=== PATIENT | female | born 1965 | race Caucasian/White ===

== ENCOUNTER 2018-08-24 10:46 | Inpatient (IN) | payer BC ==
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
[2018-08-24 11:41] LABS: Hematocrit 53 % (35-47); Hemoglobin 17.6 g/dL (12.0-16.0); Mean Corpuscular HGB Conc 33 g/dL (31-36); Mean Corpuscular Hemoglobin 29 pg (27-31); Mean Corpuscular Volume 87 fL (80-97); Platelet Count 168 10^3/uL (150-450); Red Blood Count 6.11 10^6 /uL (3.70-4.87); Red Cell Distribution Width 14 % (10-15); White Blood Count 5.8 10^3/uL (3.5-10.8)
[2018-08-24 11:52] LABS: Urine Appearance Clear; Urine Bilirubin Negative (Negative); Urine Blood Negative (Negative); Urine Color Yellow; Urine Glucose Negative (Negative); Urine Ketones Negative (Negative); Urine Nitrite Negative (Negative); Urine Protein Negative (Negative); Urine Urobilinogen Negative (Negative)
[2018-08-24 12:00] LABS: Albumin 3.5 g/dL (3.2-5.2); Albumin/Globulin Ratio 0.9 (1-3); BUN/Creatinine Ratio 11.3 (8-20); Calcium 8.8 mg/dL (8.6-10.3); EGFR African American 146.6 (>60); EGFR Non-African American 121.1 (>60); Potassium 3.3 mmol/L (3.5-5.0); Total Bilirubin 0.9 mg/dL (0.2-1.0); Total Protein 7.5 g/dL (6.4-8.9)
[2018-08-24] MEDS ORDERED: Nitroglycerin TAB 0.4 MG* 0.4 MG TAB SL ONE (12:06)
[2018-08-24] MEDS ORDERED: Aspirin 81 mg CHEW TAB* 81 MG TAB.CHEW PO ONE (12:06)
[2018-08-24] MEDS ORDERED: Iohexol 350* (CONTRAST) 500 ML MDV IV ONE (12:14)
[2018-08-24 12:16] LABS: Troponin I 0.06 ng/mL (<0.04)
[2018-08-24] MEDS ORDERED: Potassium Chlor TAB* 20 MEQ TAB.ER PO ONE ×2 (12:55→16:49)
[2018-08-24] MEDS ORDERED: ALPRAZolam TAB* 0.5 MG PO ONE (12:55)
[2018-08-24] MEDS ORDERED: Furosemide IV* 10 MG/ML VIAL (40 MG) IV SLOW PU ONE (13:09)
[2018-08-24] MEDS ORDERED: Iodixanol* (CONTRAST) 320 MG/ML 100 ML SDV IV ONE (13:31)
[2018-08-24] MEDS ORDERED: Ondansetron INJ* 2 MG/ML VIAL IV PRN (16:01)
[2018-08-24] MEDS ORDERED: Albuterol/Ipratropium NEB.SOL* Albuterol 2.5 MG/Ipratropium 0.5 MG 3 ML INH PRN (16:01)
[2018-08-24] MEDS ORDERED: predniSONE TAB* 20 MG PO ONE (16:04)
[2018-08-24] MEDS ORDERED: Azithromycin TAB* 250 MG PO ONE (16:06)
[2018-08-24] MEDS ORDERED: Nitroglycerin 0.2 MG/HR PATCH* (5 MG) TRANSDERM ONE (16:22)
[2018-08-24] MEDS ORDERED: Nicotine PATCH 21 MG/24 HR* PATCH TRANSDERM PRN (16:24)
[2018-08-24 16:33] LABS: Troponin I 0.07 ng/mL (<0.04)
[2018-08-24] MEDS ORDERED: Enoxaparin(*) 40 MG/0.4 ML SYR SUBCUT SCH (17:00)
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
--- NOTE | 2018-08-24 20:15 | HP ---
HISTORY AND PHYSICAL: ADDENDUM: The case was reviewed and discussed with Maryjo Cardona, a physician billing and accounting staff assistant. Mrs. Romero is a 52-year-old lady with a past medical history of hypertension, tobacco abuse, who presents to the emergency room with complaints of lower extremities edema, left-sided chest pain, and shortness of breath. Her workup in the emergency room include lower extremity Doppler with no DVT and CTA of the chest with no evidence of pulmonary embolism, but findings compatible with advanced emphysema and probable pulmonary hypertension. There are also signs of interstitial edema and small volume perihepatic ascites. IMPRESSION: The patient presents with congestive heart failure and she will also need workup for coronary artery disease. At this point, we will treat her congestive heart failure and chronic obstructive pulmonary disease, and when she is more stable, we will consider a stress test, unless her troponin continues to trend up and she was in for a myocardial infarction and requires a cardiac cath. I am in agreement with the current management. [id number]/CPS #: [id number] MTDD
[2018-08-24] MEDS: Atorvastatin* 40 MG TAB PO SCH (21:16)
[2018-08-24] MEDS: Enoxaparin(*) 40 MG/0.4 ML SYR SUBCUT SCH (21:17)
[2018-08-24] MEDS ORDERED: Albuterol HFA INHALER* 8 gm MDI INH PRN (22:05)
[2018-08-24] MEDS: Nicotine Patch Removal NOTE PATCH OFF SCH (22:15)
[2018-08-24 23:52] LABS: Troponin I 0.06 ng/mL (<0.04)
[2018-08-25 02:52] LABS: Troponin I 0.05 ng/mL (<0.04)
[2018-08-25 06:02] LABS: ABS Lymphocytes 0.3 10^3/ul (1.0-4.8); ABS Monocytes 0.1 10^3/ul (0-0.8); ABS Neutrophils 1.4 10^3/ul (1.5-7.7); Hematocrit 49 % (35-47); Hemoglobin 16.6 g/dL (12.0-16.0); Lymphocyte % 18.4 %; Mean Corpuscular HGB Conc 34 g/dL (31-36); Mean Corpuscular Hemoglobin 30 pg (27-31); Mean Corpuscular Volume 87 fL (80-97); Mean Platelet Volume 9.4 fL (7.4-10.4); Nucleated Red Blood Cells % 0.7; Platelet Count 131 10^3/uL (150-450); Red Blood Count 5.63 10^6 /uL (3.70-4.87); Red Cell Distribution Width 14 % (10-15); White Blood Count 1.8 10^3/uL (3.5-10.8)
[2018-08-25] MEDS: Levothyroxine TAB* 75 MCG TAB PO SCH (06:04)
[2018-08-25 06:11] LABS: BUN/Creatinine Ratio 10.6 (8-20); Blood Urea Nitrogen 5 mg/dL (6-24); Calcium 8.7 mg/dL (8.6-10.3); Chloride 96 mmol/L (101-111); EGFR African American 168.4 (>60); EGFR Non-African American 139.2 (>60); Glucose 112 mg/dL (70-100); Sodium 138 mmol/L (135-145)
[2018-08-25 06:13] LABS: CO2 Carbon Dioxide 42 mmol/L (22-32)
[2018-08-25] MEDS ORDERED: Furosemide IV* 10 MG/ML VIAL (40 MG) IV ONE (09:00)
[2018-08-25] MEDS: Aspirin EC TAB* 81 MG TAB.EC PO SCH (09:22)
[2018-08-25] MEDS: Hydrochlorothiazide TAB* 25 MG PO SCH (09:22)
[2018-08-25] MEDS: Azithromycin TAB* 250 MG PO SCH (09:22)
[2018-08-25] MEDS: Nitroglycerin 0.2 MG/HR PATCH* (5 MG) TRANSDERM SCH (09:23)
[2018-08-25] MEDS: Nitroglycerin 0.2 MG/HR PATCH* (5 MG) TRANSDERM ONE ×2 (09:23→11:02)
[2018-08-25] MEDS: predniSONE TAB* 20 MG PO SCH (09:23)
[2018-08-25] MEDS: amLODIPine TAB* 5 MG PO SCH (09:23)
--- NOTE | 2018-08-25 10:04 | ECHO ---
*[facility]* [place] [address] Fax #: [phone] Transthoracic Echocardiogram Patient: Rosette Roemro : 1965 Study Date: 08/25/2018 Age: 52 Gender: F HR: 106 bpm Height: 62 in /157.5 cm BSA: 1.34 m^2 Weight: 91.8 lb /41.7 kg BMI: 16.8 kg/m^2 *Oxyacetylene Welder: * Akosua Vasquez RD *Referring Physician: * Maryjo Cardona *Reading Physician: * Clifford Dorsey MD Indications: SOB. Edema. History: Probable Chronic obstructive pulmonary disease by chest xray. Risk factors: Current tobacco use. Hypertension. Conclusions Summary: 1. Left ventricle: The cavity size is normal. Wall thickness is normal. Systolic function is normal. The estimated ejection fraction is 55-60%. Wall motion is normal; there are no regional wall motion abnormalities. 2. Right ventricle: The cavity size is moderately dilated. Wall thickness is mildly increased. Systolic function is moderately reduced. 3. Ventricular septum: There is septal flattening of the interventricular septum consistent with RV volume or pressure overload. 4. Tricuspid valve: There is mild-moderate regurgitation. 5. Pulmonary arteries: Systolic pressure is mildly increased. 6. There is no prior echocardiogram available to compare with at this time. Study data: Transthoracic echocardiogram. Procedure: Transthoracic echocardiography was performed. Image quality was good. Complete 2D, spectral Doppler, and color flow Doppler. Location: Bedside. Patient status: Inpatient. Patient room number: 440. Rhythm: Tachycardia. Findings Left ventricle: The cavity size is normal. Wall thickness is normal. Systolic function is normal. The estimated ejection fraction is 55-60%. Wall motion is normal; there are no regional wall motion abnormalities. There is no consistent Doppler evidence of clinically significant diastolic dysfunction. Right ventricle: The cavity size is moderately dilated. Wall thickness is mildly increased. Systolic function is moderately reduced. Systolic pressure is mildly increased. Ventricular septum: There is septal flattening of the interventricular septum consistent with RV volume or pressure overload. Left atrium: The atrium is normal in size. Right atrium: The atrium is mildly dilated. Mitral valve: The leaflets are mildly thickened. There is no evidence of stenosis. There is mild regurgitation. Aortic valve: The valve is trileaflet. The leaflets are mildly thickened. There is no evidence of stenosis. There is no significant regurgitation. Tricuspid valve: The leaflets are normal thickness. There is mild-moderate regurgitation. Pulmonic valve: The leaflets are normal thickness. There is no evidence of stenosis. There is trivial regurgitation. Aorta: Ascending aorta: The ascending aorta is appears normal. Aortic arch: The aortic arch is not visualized. The aortic root is not dilated. Pericardium: A possible, small pericardial effusion is identified at the apex. The fluid has no internal echoes. There is no evidence of hemodynamic compromise. Pulmonary arteries: Not well visualized. Systolic pressure is mildly increased. Systemic veins: Inferior vena cava: The vessel is dilated. The respirophasic diameter changes are in the normal range (>= 50%). Measurements Left ventricle Value Ref Aortic valve Value Ref LAKIA, LAX (L) 3.7 cm 3.8 - 5.2 Peak v, S 1.04 m/sec ----- ESD, LAX 2.5 cm 2.2 - 3.5 VTI, S 17.5 cm ----- FS, LAX 32 % 45 Mean grad, S 2.7 mm Hg ----- PW, ED, LAX 0.9 cm 0.6 - 0.9 Peak grad, S 4.3 mm Hg ----- FS 32 % - 45 LVOT/AV, VTI ratio 0.81 ----- PW, ED 0.9 cm 0.6 - 0.9 JOVI, VTI 1.91 cm^2 ----- E', lat jonathan, TDI (L) 5.8 cm/sec >=10.0 JOVI, Vmax 2.28 cm^2 --- -- E/e', lat jonathan, 17 TDI Mitral valve Value Ref Peak E 0.97 m/sec ----- LVOT Value Ref Peak A 1.3 m/sec ----- Diam, S 1.89 cm Decel time 37 ms ----- Area 2.8 cm^2 Peak grad, D 3.7 mm Hg ----- Peak madelin, S 0.99 m/sec Peak E/A ratio 0.75 ----- VTI, S 14.1 cm Peak grad, S 4 mm Hg Pulmonic valve Value Ref Mean grad, S 2 mm Hg Peak v, S 0.75 m/sec ----- Peak grad, S 2.2 mm Hg ----- Ventricular septum Value Ref SC peak v 1.56 m/sec ----- IVS, ED 0.9 cm 0.6 - 0.9 SC peak grad 10 mm Hg ----- SC grad, ED 10 mm Hg ----- Right ventricle Value Ref AW thickness, ED (H) 0.6 cm 0.1 - 0.5 Tricuspid valve Value Ref LAKIA, LAX 3.1 cm TR peak v (H) 3.01 m/sec <=2.8 LAKIA major ax, A4C (L) 5.1 cm 5.9 - 8.3 Peak RV-RA grad, S 36 mm Hg ----- Pressure, S 44 mm Hg Aortic root Value Ref Left atrium Value Ref Root diam 1.6 cm <3.7 AP dim, ES 2.80 cm 2.70 - 3.80 Ascending aorta Value Ref SI dim ES, LAX 2.8 cm AAo AP diam, S 2.7 cm ----- ML dim, A4C 3.8 cm SI dim, A4C 4.9 cm Pulmonary artery Value Ref Vol, ES, 2-p 43 ml Pressure, S 41.8 mm Hg ----- Vol/bsa, ES, 2-p 32 ml/m^2 16 - 34 Inferior vena cava Value Ref Right atrium Value Ref Diam 1.7 cm ----- SI dim, ES 5.2 cm 3.4 - 5.3 ML dim, ES, A4C (H) 5.3 cm 2.6 - 4.4 SI dim, ES, A4C 5.2 cm 3.4 - 5.3 Estimated RAP 8 mm Hg Legend: (L) and (H) robyn values outside specified reference range. Prepared and electronically signed by Clifford Dorsey MD 08/25/2018 10:03
--- NOTE | 2018-08-25 13:08 | PN ---
Subjective Date of Service: 08/25/18 Interval History: Pt feels well. CP that was localized in left shoulder area has resolved. Denies SOB, but still requiring 02 Objective Active Medications: Albuterol (Ventolin Hfa Inhaler*) 2 puff INH Q4H PRN PRN Reason: SHORTNESS OF BREATH Albuterol/Ipratropium (Duoneb (Albuterol 2.5 Mg/Ipratropium 0.5 Mg)) 1 neb INH [id number] AWAKE PRN PRN Reason: sob/wheezing Alprazolam (Xanax Tab*) 0.25 mg PO DAILY PRN PRN Reason: ANXIETY Amlodipine Besylate (Norvasc Tab*) 2.5 mg PO DAILY [facility] Last Admin: 08/25/18 09:23 Dose: 2.5 mg Aspirin (Aspirin Ec Tab*) 81 mg PO DAILY [facility] Last Admin: 08/25/18 09:22 Dose: 81 mg Atorvastatin Calcium (Lipitor*) 40 mg PO 2100 [facility] Last Admin: 08/24/18 21:16 Dose: 40 mg Azithromycin (Zithromax Tab*) 250 mg PO DAILY [facility] Last Admin: 08/25/18 09:22 Dose: 250 mg Enoxaparin Sodium (Lovenox(*)) 40 mg SUBCUT BEDTIME [facility] Last Admin: 08/24/18 21:17 Dose: 40 mg Hydrochlorothiazide (Hydrodiuril Tab*) 12.5 mg PO DAILY [facility] Last Admin: 08/25/18 09:22 Dose: 12.5 mg Levothyroxine Sodium (Synthroid Tab*) 75 mcg PO DAILY@0600 [facility] Last Admin: 08/25/18 06:04 Dose: 75 mcg Nicotine (Nicotine Patch 21 Mg/24 Hr*) 1 patch TRANSDERM DAILY@0800 PRN PRN Reason: CRAVING Nitroglycerin (Nitroglycerin 5 Mg Patch*) 1 patch TRANSDERM DAILY@0900 [facility] Last Admin: 08/25/18 09:23 Dose: 1 patch Ondansetron HCl (Zofran Inj*) 4 mg IV Q4H PRN PRN Reason: NAUSEA/VOMITING Pharmacy Profile Note (Nicotine Patch Removal Note*) 1 note PATCH OFF 2099 [facility] Last Admin: 08/24/18 22:15 Dose: Not Given Pharmacy Profile Note (Nitro Patch/Oint Remove*) 1 note PATCH OFF 2100 [facility] Prednisone (Deltasone Tab*) 40 mg PO DAILY [facility] Stop: 08/28/18 09:01 Last Admin: 08/25/18 09:23 Dose: 40 mg Vital Signs - 8 hr 08/25/18 08/25/18 07:15 11:15 Temperature 97.7 F 98.2 F Pulse Rate 102 100 Respiratory 18 20 Rate Blood Pressure 123/71 104/73 (mmHg) O2 Sat by Pulse 95 92 Oximetry Oxygen Devices in Use Now: Nasal Cannula Appearance: 52 yo F in nAD, aAOx3 Eyes: No Scleral Icterus, PERRLA Ears/Nose/Mouth/Throat: NL Teeth, Lips, Gums, Mucous Membranes Moist Neck: NL Appearance and Movements; NL JVP, Trachea Midline Respiratory: Symmetrical Chest Expansion and Respiratory Effort, - - distant breath sounds b/l Cardiovascular: NL Sounds; No Murmurs; No JVD, RRR Abdominal: NL Sounds; No Tenderness; No Distention Lymphatic: No Cervical Adenopathy Extremities: No Clubbing, Cyanosis, - - traceankle edema b/l Skin: No Rash or Ulcers, No Nodules or Sclerosis Neurological: Alert and Oriented x 3, NL Muscle Strength and Tone Result Diagrams: 08/25/18 05:06 08/25/18 05:06 Assess/Plan/Problems-Billing Assessment: 52 yo F with h/o 3/4 PPD smoking presented with leg edema x 2 weeks , left CP and SOB - Patient Problems (1) Acute hypoxemic respiratory failure Comment: due to COPD exacerbation No sig. wheezing today, but CTA noted significant changes cont prednisone, inhalers. Azithro was started at admission, no evidence of infection or fevers, will stop wean 02 to off if possible (2) Chest pain Comment: resolved, trop indeterminate-suspect demand ischemia Echo shows EF55%, but stress test recommended (3) Leg edema Comment: suspect diastlic, right sided CHF with preserved EF-acute Pt can be started on oral Lasix daily (4) Neutropenia Comment: mild, with ANC 1.4 will monitor (5) DVT prophylaxis Comment: lovenox Status and Disposition: OBV
[2018-08-25] MEDS: Furosemide TAB* 20 MG PO SCH (14:14)
[2018-08-25] MEDS ORDERED: Nitro Patch/OINT Remove PATCH OFF SCH (21:00)
[2018-08-25] MEDS: ALPRAZolam TAB* 0.25 MG PO PRN (21:16)
[2018-08-25] MEDS: Atorvastatin* 40 MG TAB PO SCH (21:16)
[2018-08-25] MEDS: Enoxaparin(*) 40 MG/0.4 ML SYR SUBCUT SCH (21:17)
[2018-08-25] MEDS: Nicotine Patch Removal NOTE PATCH OFF SCH (21:29)
[2018-08-26 06:25] LABS: ABS Lymphocytes 1.1 10^3/ul (1.0-4.8); ABS Monocytes 0.6 10^3/ul (0-0.8); ABS Neutrophils 3.9 10^3/ul (1.5-7.7); Hematocrit 48 % (35-47); Hemoglobin 16.2 g/dL (12.0-16.0); Lymphocyte % 20.1 %; Mean Corpuscular HGB Conc 34 g/dL (31-36); Mean Corpuscular Hemoglobin 29 pg (27-31); Mean Corpuscular Volume 86 fL (80-97); Mean Platelet Volume 9.6 fL (7.4-10.4); Nucleated Red Blood Cells % 0.1; Platelet Count 138 10^3/uL (150-450); Red Blood Count 5.59 10^6 /uL (3.70-4.87); Red Cell Distribution Width 14 % (10-15); White Blood Count 5.6 10^3/uL (3.5-10.8)
[2018-08-26 06:39] LABS: BUN/Creatinine Ratio 24.4 (8-20); Calcium 9.1 mg/dL (8.6-10.3); EGFR African American 197.1 (>60); EGFR Non-African American 162.9 (>60); Potassium 3.3 mmol/L (3.5-5.0)
[2018-08-26] MEDS: Levothyroxine TAB* 75 MCG TAB PO SCH (06:47)
[2018-08-26 07:50] LABS: Magnesium 1.7 mg/dL (1.9-2.7)
[2018-08-26] MEDS ORDERED: Magnesium Sulfate 1 GM IV* 1 GM/100 ML BAG IV ONE (08:00)
[2018-08-26] MEDS: Aspirin EC TAB* 81 MG TAB.EC PO SCH (08:22)
[2018-08-26] MEDS: Azithromycin TAB* 250 MG PO SCH (08:22)
[2018-08-26] MEDS: ALPRAZolam TAB* 0.25 MG PO PRN (08:22)
[2018-08-26] MEDS: KCL 20 MEQ/100 ML IVPREMIX* 20 MEQ/100 ML BAG IV SCH ×2 (08:24→16:30)
[2018-08-26 09:43] VITALS: BP 120/75
[2018-08-26] MEDS ORDERED: Regadenoson* 0.4 MG/5 ML SYRINGE ONE (12:11)
[2018-08-26] MEDS ORDERED: Ondansetron INJ* 2 MG/ML VIAL ONE (13:08)
[2018-08-26] MEDS ORDERED: Magnesium Oxide TAB* 400 MG PO SCH (15:00)
[2018-08-26] MEDS ORDERED: Potassium Chlor TAB* 20 MEQ TAB.ER PO ONE (15:16)
[2018-08-26] MEDS: predniSONE TAB* 20 MG PO SCH (15:32)
[2018-08-26] MEDS: amLODIPine TAB* 5 MG PO SCH (15:34)
[2018-08-26] MEDS: Hydrochlorothiazide TAB* 25 MG PO SCH (15:34)
[2018-08-26] MEDS: Furosemide TAB* 20 MG PO SCH (15:34)
[2018-08-26] MEDS: Nitroglycerin 0.2 MG/HR PATCH* (5 MG) TRANSDERM SCH (16:30)
--- NOTE | 2018-08-26 22:02 | DS ---
DISCHARGE SUMMARY: DATE OF ADMISSION: 08/24/18 DATE OF DISCHARGE: 08/26/18 PRIMARY CARE PROVIDER: Dr. Mcguire. DISCHARGE DIAGNOSES: 1. Acute diastolic congestive heart failure due to chronic obstructive pulmonary disease exacerbation, hypoxemia, right-sided heart failure. 2. Acute hypoxemic respiratory failure due to chronic obstructive pulmonary disease exacerbation. SECONDARY DIAGNOSES: 1. History of ongoing tobacco use. 2. Hypertension. 3. Hypothyroidism. 4. Anxiety. MEDICATIONS AT DISCHARGE: Include: 1. Albuterol inhaler on p.r.n. basis. 2. Xanax 0.25 mg daily p.r.n. 3. Norvasc 2.5 mg daily. 4. Hydrochlorothiazide 12.5 mg daily. 5. Ibuprofen on p.r.n. basis. 6. Synthroid 75 mcg daily. 7. Remeron 15 mg at bedtime p.r.n. 8. Nicotine patch 21 mg transdermally daily. 9. Zofran on p.r.n. basis. 10. DuoNeb 1 nebulizer every 4 hours p.r.n. 11. Mag-Ox 400 mg daily. 12. Dulera 200/5 one inhalation b.i.d. 13. Prednisone 40 mg daily for 2 days and 20 mg daily for 2 days and 10 mg daily for 2 days and then stop. 14. The patient is prescribed continuous oxygen at 2 L at home. LABORATORY DATA AND STUDIES PERFORMED DURING THE HOSPITAL STAY: Included: On , white blood cell count 5.6, hemoglobin 15.2, hematocrit 48, and platelets 138. D-dimer 665. Sodium 135, potassium 3.3, chloride 88, carbon dioxide 44, BUN 10, creatinine 0.41, magnesium of 1.7. The patient's troponin was maximum at 0.07. CT angiogram of the chest obtained at admission on 08/24/18, impression "no evidence of pulmonary embolism. Thickened peripheral interlobular septa and trace bilateral pleural effusions favoring mild interstitial edema. Advanced emphysema and probable pulmonary arterial hypertension given prominent central pulmonary arteries and enlarged right cardiac . Small volume of perihepatic ascites at the visualized upper abdomen." Transthoracic echocardiogram obtained on 08/25/18 showed EF of 55 to 60% with no regional wall motion abnormalities. The right ventricle moderately dilated with systolic function moderately reduced. There was a septal flattening of the interventricular septum consistent with RV volume of pressure overload. There is [id number] right tricuspid regurgitation and pulmonary pressures mildly increased. The patient underwent adenosine cardiac stress test performed on 08/26/18, which showed, impression "there may be small area of reversible change of the inferior wall near the base of the heart. Left ventricle appears normal in size. Assessment, low risk." HOSPITALIZATION COURSE: Rosette Romero is a 52-year-old female with history of chronic smoking, who presents to the hospital complaining of leg edema and shortness of breath. She was markedly hypoxemic and required oxygen. She was diagnosed with COPD exacerbation, treated initially with azithromycin and prednisone. She also was continued on her Lasix that she was prescribed by her primary care provider a week prior to admission for leg edema. Her troponins were mildly elevated at 0.07 to 0.05. The patient also had mildly elevated hemoglobin A1c at 6.1. She was diuresed and her leg edema resolved. Her echocardiogram showed normal EF with RV pressure overload consistent with right- sided heart failure, likely due to severe emphysema that was noted on CT. Despite treatment with steroids and diuresis, she continued to be hypoxemic and by the time of discharge, she required oxygen 2 L and that is going to be arranged for the patient at discharge. Due to mildly elevated troponin and her ongoing history of smoking, she was recommended a cardiac stress test, which was obtained, which showed low risk with possibility of small area of ischemia at the bottom of the heart, although usually that is due to diaphragmatic attenuation. The patient did have some mild chest pain at the time of admission, that resolved by the time of discharge. It is likely that the small area of reversible ischemia is due to attenuation. Nevertheless that would not be an indication for cardiac catheterization. The patient was informed that her troponin elevation was likely due to demand ischemia and stress due to hypoxemia. She was recommended low-sodium diet and to follow up with her primary care provider. Due to increasing CO2 with diuresis, I will not prescribe any further Lasix and that was discontinued at discharge. The patient is recommended to follow up with her primary care provider in approximately 4 to 7 days. PHYSICAL EXAM AT TIME OF DISCHARGE: Blood pressure 120/75, heart rate of 90 and regular, respiratory rate 20, oxygen saturation 93% on 2 L of oxygen via nasal cannula, temperature 97.7. General: The patient is a very pleasant 52- year-old female, who is in no acute distress. Alert, awake, and oriented x3. HEENT: Head is atraumatic, normocephalic. Eyes: Pupils are equal and reactive to light and accommodation. Oropharynx is clear. Mucosa moist. Neck : Supple. No JVD. No bruits bilaterally. Cardiovascular: Regular rate and rhythm. No murmur. Respiratory: Distant breath sounds bilaterally. Abdomen: Soft, nontender. Bowel sounds are present in all 4 quadrants. Extremities: There is no edema. Pulses are +2 bilaterally. There is no clubbing or cyanosis. Neuro evaluation: Speech is clear. Cranial nerves II through XII are grossly intact. Motor strength is 5/5 bilaterally. DISPOSITION AT DISCHARGE: Home. CONDITION ON DISCHARGE: Stable. Please note that this is a short summary of the patient's hospital stay. Please refer to further medical records for details. TIME SPENT: Approximately 45 minutes was spent on the patient's discharge. [id number]/CPS #: [id number] MTDD
== END 2018-08-26 17:30 | disposition home or self-care (01) | DRG 194 ==
LOC: ED 10:46 → MEDTELE 16:01 → OBSVTOIN 08-25 11:00
PROVIDERS: ADMIT Internal Medicine; ATTEND Internal Medicine
PROC: 4A02XM4 Measurement of Cardiac Total Activity, External Approach (ICD-10-PCS; principal; 2018-08-26)
PROC: 3E073KZ Introduction of Other Diagnostic Substance into Coronary Artery, Percutaneous Approach (ICD-10-PCS; 2018-08-26)
DX: I11.0 Hypertensive heart disease with heart failure (principal); J96.01 Acute respiratory failure with hypoxia; I50.31 Acute diastolic (congestive) heart failure; E46 Unspecified protein-calorie malnutrition; I24.8 Other forms of acute ischemic heart disease; E87.1 Hypo-osmolality and hyponatremia; Z68.1 Body mass index [BMI] 19.9 or less, adult; J43.9 Emphysema, unspecified; I50.810 Right heart failure, unspecified; E03.9 Hypothyroidism, unspecified; F41.9 Anxiety disorder, unspecified; F17.210 Nicotine dependence, cigarettes, uncomplicated; D70.9 Neutropenia, unspecified; I07.1 Rheumatic tricuspid insufficiency; E87.6 Hypokalemia; Z88.0 Allergy status to penicillin; Z83.3 Family history of diabetes mellitus; Z99.81 Dependence on supplemental oxygen; Z82.49 Family history of ischemic heart disease and other diseases of the circulatory system; Z82.3 Family history of stroke
CPT/HCPCS: 36415; 71045; 71275; 78452; 80048; 80053; 81003; 82103; 83036; 83735; 83880; 84484; 85025; 85027; 85379; 93005; 93017; 93306; 93970; 99284; A9270-GY; A9502; G0378; J1650; J1940; J2405; J2785; J3475; J3480; J7512; Q9967